=== PATIENT | female | born 1955 | race Caucasian/White ===

== ENCOUNTER → 2018-05-30 | Outpatient (CLI) | payer OTHER ==
[~2018-05-30] MED LIST: ALBU8HFA2 INH; ALBU90OI INH; AMOCLA875 PO; ARIP10 PO; BUPR150T2; CEPH500 PO; CLON.1 PO; CLON1; CYCL10; DESV50 PO; Diflucan200 MG PO; ESTR.05TPB; HYDACE5 PO; NYST100SU MT; PROACE100; PROG100; QUET100 PO; RANI150; ROSU10TA; SERT100; TIOT18 IH; VARE1 PO
[2018-05-30 20:01] LABS: BASOPHILS ABSOLUTE AUTO 0.02 K/mm3 (0.00-0.23); BASOPHILS PERCENT AUTO 0 % (0-2); EOSINOPHILS ABSOLUTE AUTO 0.07 K/mm3 (0.00-0.68); EOSINOPHILS PERCENT AUTO 1 % (0-6); Hematocrit 37.4 % (33.0-51.0); Hemoglobin 12.9 g/dL (11.5-16.0); IMMATURE GRAN ABSOLUTE AUTO 0.01 K/mm3 (0.00-0.10); IMMATURE GRAN PERCENT AUTO 0 % (0-1); LYMPHOCYTES ABSOLUTE AUTO 2.25 K/mm3 (0.84-5.20); LYMPHOCYTES PERCENT AUTO 27 % (21-46); MONOCYTES ABSOLUTE AUTO 0.66 K/mm3 (0.16-1.47); MONOCYTES PERCENT AUTO 8 % (4-13); Mean Corpuscular HGB 31.9 pg (26.0-34.0); Mean Corpuscular HGB Conc 34.5 g/dL (31.5-36.5); Mean Corpuscular Volume 93 fL (80-100); Mean Platelet Volume 9.9 fL (9.1-12.4); NEUTROPHILS ABSOLUTE AUTO 5.19 K/mm3 (1.96-9.15); NEUTROPHILS PERCENT AUTO 63 % (41-73); Platelet Count 348 K/mm3 (150-400); RDW Coefficient Variation 12.9 % (11.7-14.2); RDW Standard Deviation 43.9 fL (35.1-46.3); Red Blood Cell Count 4.04 M/mm3 (3.80-5.20)
[2018-05-30 20:11] LABS: Alanine Aminotransfer (ALT/SGP 45 U/L (12-78); Albumin, Blood 3.9 g/dL (3.4-5.0); Albumin/Globulin Ratio 1.1 (0.8-1.8); Alk Phos 94 U/L (50-136); Anion Gap 7 mmol/L (6-16); Aspartate Aminotrans (AST/SGOT 26 U/L (12-37); Bilirubin, Total 0.3 mg/dL (0.1-1.0); Blood Urea Nitrogen 11 mg/dL (8-24); Bun/Creatinine Ratio 18.5 (12.0-20.0); CO2, Blood 26 mmol/L (21-32); Calcium, Blood 9.2 mg/dL (8.5-10.1); Chloride, Blood 97 mmol/L (98-108); Globulin, Blood 3.5 g/dL (2.2-4.0); Glomerular Filtration Rate >60 (60-); Glucose, Blood 80 mg/dL (70-99); Potassium, Blood 4.1 mmol/L (3.5-5.5); Sodium, Blood 130 mmol/L (136-145); Total Protein, Blood 7.4 g/dL (6.4-8.2)
== END ==
LOC: LAB SHORT 19:19 → LAB 19:19
DX: R50.9 Fever, unspecified (principal)
CPT/HCPCS: 80053; 85025

== ENCOUNTER → 2019-01-15 | Outpatient (CLI) | payer OTHER ==
[~2019-01-15] MED LIST changes: +ABILIFY MYCITE20 MG PO; +ATOR10 PO; +Acetaminophen650 M1 PO; +Aspirin EC81 MG PO; +BUDE6HFA INH; +DICLO GEL1 EACH TOP; +Lisinopril2.5 MG PO; +Lyrica225 MG PO; +OXYB5 PO; +OXYGEN; +Pristiq100 MG PO; +TIOT18 INH; +Ventolin/Prove6.7 GM INH
== END | disposition home or self-care (01) ==
LOC: LAB SHORT 08:39 → PLD 08:39
DX: L57.0 Actinic keratosis (principal)
CPT/HCPCS: 88305

== ENCOUNTER 2019-02-05 06:41 | Day surgery (SDC) | payer OTHER ==
[~2019-02-05] VITALS: Ht 162.6 cm; Wt 44.5 kg
== END 2019-02-05 08:52 | disposition home or self-care (01) ==
LOC: ORSCSDS 06:41
PROVIDERS: Ophthalmology
PROC: 08RJ3JZ Replacement of Right Lens with Synthetic Substitute, Percutaneous Approach (ICD-10-PCS; principal; 2019-02-05 08:00)
DX: H25.11 Age-related nuclear cataract, right eye (principal); Z87.891 Personal history of nicotine dependence; K21.9 Gastro-esophageal reflux disease without esophagitis; F41.8 Other specified anxiety disorders; I10 Essential (primary) hypertension; J44.9 Chronic obstructive pulmonary disease, unspecified; Z79.899 Other long term (current) drug therapy
CPT/HCPCS: J2250; J3010; J7120; V2632

== ENCOUNTER → 2019-09-03 | Outpatient (CLI) | payer OTHER ==
[2019-09-03 15:50] LABS: BASOPHILS ABSOLUTE AUTO 0.03 K/mm3 (0.00-0.23); BASOPHILS PERCENT AUTO 0 % (0-2); EOSINOPHILS ABSOLUTE AUTO 0.13 K/mm3 (0.00-0.68); EOSINOPHILS PERCENT AUTO 2 % (0-6); Hematocrit 38.7 % (33.0-51.0); Hemoglobin 12.8 g/dL (11.5-16.0); IMMATURE GRAN ABSOLUTE AUTO 0.02 K/mm3 (0.00-0.10); IMMATURE GRAN PERCENT AUTO 0 % (0-1); LYMPHOCYTES ABSOLUTE AUTO 1.07 K/mm3 (0.84-5.20); LYMPHOCYTES PERCENT AUTO 12 % (21-46); MONOCYTES ABSOLUTE AUTO 0.46 K/mm3 (0.16-1.47); MONOCYTES PERCENT AUTO 5 % (4-13); Mean Corpuscular HGB 31.7 pg (26.0-34.0); Mean Corpuscular HGB Conc 33.1 g/dL (31.5-36.5); Mean Corpuscular Volume 96 fL (80-100); Mean Platelet Volume 10.1 fL (9.1-12.4); NEUTROPHILS ABSOLUTE AUTO 6.91 K/mm3 (1.96-9.15); NEUTROPHILS PERCENT AUTO 80 % (41-73); Platelet Count 432 K/mm3 (150-400); RDW Standard Deviation 42.7 fL (35.1-46.3); Red Blood Cell Count 4.04 M/mm3 (3.80-5.20); White Blood Cell Count 8.62 K/mm3 (4.00-11.30)
[2019-09-03 16:21] LABS: Alanine Aminotransfer (ALT/SGP 37 U/L (12-78); Albumin, Blood 4.1 g/dL (3.4-5.0); Alk Phos 269 U/L (50-136); Anion Gap 9 mmol/L (6-16); Aspartate Aminotrans (AST/SGOT 23 U/L (12-37); Bilirubin, Total 0.6 mg/dL (0.1-1.0); Blood Urea Nitrogen 12 mg/dL (8-24); Bun/Creatinine Ratio 19.9 (12.0-20.0); CHOL/HDL RATIO 1.9; CO2, Blood 24 mmol/L (21-32); Calcium, Blood 9.3 mg/dL (8.5-10.1); Chloride, Blood 98 mmol/L (98-108); Cholesterol 161 mg/dL (50-200); Globulin, Blood 4.1 g/dL (2.2-4.0); Glomerular Filtration Rate >60 (60-); Glucose, Blood 106 mg/dL (70-99); HDL Cholesterol 86 mg/dL (>39); LDL/HDL RATIO 0.7; Low Density Lipoprotein Chol 63 mg/dL (0-110); Potassium, Blood 4.2 mmol/L (3.5-5.5); Sodium, Blood 131 mmol/L (136-145); Thyroid Stimulating Hormone 0.668 uIU/mL (0.360-4.800); Total Protein, Blood 8.2 g/dL (6.4-8.2); Triglycerides 61 mg/dL (30-160); Very Low Density Lipoprot Chol 12 mg/dL (6-32)
[2019-09-04 08:08] LABS: HBSAG SCREEN Negative (Negative); HEP B CORE AB, TOT Negative (Negative); HEP C VIRUS AB <0.1 (0.0-0.9)
== END ==
PROVIDERS: Family Medicine
DX: Z11.59 Encounter for screening for other viral diseases (principal); I10 Essential (primary) hypertension; R73.01 Impaired fasting glucose

== ENCOUNTER → 2019-10-04 | Outpatient (CLI) | payer OTHER ==
[2019-10-04 21:16] LABS: Osmolality, Urine 234 mos/kg (15-1400)
[2019-10-04 21:30] LABS: Sodium, Urine, Random 20 mmol/L (20-110)
== END ==
LOC: LAB 19:41 → LAB SHORT 19:41
PROVIDERS: Family Medicine
DX: E87.1 Hypo-osmolality and hyponatremia (principal)
CPT/HCPCS: 83930; 83935; 84300

== ENCOUNTER → 2019-11-22 | Outpatient (CLI) | payer OTHER | LOC: LAB SHORT 19:42 → LAB 19:42 | DX: R53.83 Other fatigue (principal) | CPT/HCPCS: 82306 ==

== ENCOUNTER 2021-12-02 03:41 | Inpatient (IN) | payer OTHER ==
[~2021-12-02] VITALS: Ht 162.6 cm; Wt 45.4 kg
[2021-12-02 04:36] LABS: BASOPHILS ABSOLUTE AUTO 0.02 K/mm3 (0.00-0.23); BASOPHILS PERCENT AUTO 0 % (0-2); EOSINOPHILS ABSOLUTE AUTO 0.34 K/mm3 (0.00-0.68); EOSINOPHILS PERCENT AUTO 6 % (0-6); Hematocrit 33.3 % (33.0-51.0); Hemoglobin 11.2 g/dL (11.5-16.0); IMMATURE GRAN ABSOLUTE AUTO 0.03 K/mm3 (0.00-0.10); IMMATURE GRAN PERCENT AUTO 1 % (0-1); LYMPHOCYTES ABSOLUTE AUTO 1.86 K/mm3 (0.84-5.20); LYMPHOCYTES PERCENT AUTO 31 % (21-46); MONOCYTES ABSOLUTE AUTO 0.59 K/mm3 (0.16-1.47); MONOCYTES PERCENT AUTO 10 % (4-13); Mean Corpuscular HGB 31.5 pg (26.0-34.0); Mean Corpuscular HGB Conc 33.6 g/dL (31.5-36.5); Mean Corpuscular Volume 94 fL (80-100); Mean Platelet Volume 9.4 fL (9.1-12.4); NEUTROPHILS ABSOLUTE AUTO 3.08 K/mm3 (1.96-9.15); NEUTROPHILS PERCENT AUTO 52 % (41-73); Platelet Count 288 K/mm3 (150-400); RDW Coefficient Variation 12.5 % (11.7-14.2); RDW Standard Deviation 43.6 fL (35.1-46.3); Red Blood Cell Count 3.55 M/mm3 (3.80-5.20); White Blood Cell Count 5.92 K/mm3 (4.00-11.30)
[2021-12-02 04:50] LABS: Bun/Creatinine Ratio 20.3 (12.0-20.0); Calcium, Blood 8.7 mg/dL (8.5-10.1); Creatinine, Blood 0.64 mg/dL (0.40-1.00); Potassium, Blood 4.1 mmol/L (3.5-5.5)
[2021-12-02 05:48] LABS: Source, Urine Foley catheter
[2021-12-02 06:07] LABS: Bilirubin, Urine Neg (Neg); Blood, Urine Neg (Neg); Glucose Qualitative, Urine Neg (Neg); Ketones, Urine Neg (Neg); Leukocyte Esterase, Urine Neg (Neg); Nitrite, Urine Neg (Neg); Protein, Urine Neg (Neg); Urobilinogen, Urine NORM (Normal)
[2021-12-02 06:13] LABS: Appearance, Urine Clear (Clear); Color, Urine Yellow (P-Yellow)
[2021-12-02 06:29] LABS: Influenza A, PCR NEGATIVE (NEGATIVE); Influenza B, PCR NEGATIVE (NEGATIVE); Resp Syncytial Virus, PCR NEGATIVE (NEGATIVE); SARS-Cov-2 (COVID-19) PCR, MMC NEGATIVE (NEGATIVE)
[2021-12-02 12:30] LABS: Source, Urine Clean Catch
[2021-12-02 12:35] LABS: Appearance, Urine Hazy (Clear); Bilirubin, Urine Neg (Neg); Blood, Urine 1+ (Neg); Color, Urine Yellow (P-Yellow); Glucose Qualitative, Urine Neg (Neg); Ketones, Urine Neg (Neg); Leukocyte Esterase, Urine Neg (Neg); Nitrite, Urine Neg (Neg); Protein, Urine Neg (Neg); Urobilinogen, Urine NORM (Normal)
[2021-12-02 12:47] LABS: White Blood Cells, Urine 0-2 /hpf (0-5)
[2021-12-02 12:48] LABS: Bacteria Few /hpf; Squamous Epithelial Cells Rare /hpf (Few)
[2021-12-02 12:49] LABS: Amorphous Mod (0-Heavy)
--- NOTE | 2021-12-02 15:15 | NUR ---
PT HERE FROM SURGICAL FLOOR. PT WITH INCREASING LABORED BREATHING WHICH PT STATES IS R/T INCREASED ANXIETY. PT ASKING FOR UPDRAFT. LUNGS CTA BUT PT DOES HAVE PRODUCTIVE COUGH. PT STATES SHE'S BEEN ON ABX FOR PNEUMONIA X 1 WEEK, PT STATES CONCERNED SHE WILL NOT BREATH DEEP ENOUGH UNDER ANESTHESIA. REASSURANCE GIVEN THAT DR. PIMENTEL WILL BE HELPING HER TO BREATH ADEQUATELY AND MONITORING HER VERY CLOSELY. PT IS IN ATTENDS AND STATES THAT HER DIMAS IS LEAKING. IV IN RAC UNABLE TO BE USED D/T POSITIONING IN OR. NEW IV PLACED IN LAC. PT UNABLE TO TOLERATE CHLORAHEXADINE WIPES OR PUTTING MICHA HOSE OR PAS ON.
--- NOTE | 2021-12-03 04:45 | NUR ---
SUMMARY NO NEW ISSUES NOTED. PT PAIN MANAGED WELL. PT REMAINS COMFORTABLE. PT DIMAS DRAINING TO GRAVITY. PT DENIES N/V. PT CALL LIGHT IN REACH.
--- NOTE | 2021-12-03 11:01 | NUR ---
SPOKE WITH DR VALENCIA REGARDING HR SUSTAINED 120-130, WILL CONTINUE O MONITOR
--- NOTE | 2021-12-03 17:43 | NUR ---
PT REPORTS PAIN IS ADEQUATELY CONTROLLED WITH PO MEDS, VOIDING POST DIMAS REMOVAL. ONE PERSON ASSIST OOB. HR ST 100-130 WITH SHORT PERIODS P TO 150 WHEN GETTING OOB. PT STATES HER BREATHING IS AT HER BASELINE. PT HOPEFUL TO BE ABLE TO DISCHARGE TO HOME IN AM
--- NOTE | 2021-12-04 05:02 | NUR ---
ASSUMED CARE OF PT AT 1900 HRS. NO ACUTE CHANGES THIS SHIFT. PT IS A&OX4, SBA TO BR W/ FWW, AND IS ABLE TO MAKE NEEDS KNOWN. POST OP DAY 2 FOR HIP FRACTURE REPAIR, CSM IS INTACT, DRESSINGS CDI. PAIN CONTROLLED WITH NORCO 5MG 1 TAB. REMAINS ON TELE, TACHACARDIC 100-130 CAN REACH 140s AFTER AMBULATION. PT ABLE TO SLEEP 6+ HOURS THIS NIGHT. WILL CONTINUE TO MONITOR AND GIVE HANDOFF REPORT TO ONCOMING RN.
[2021-12-04 11:45] LABS: SARS-Cov-2 (COVID-19) PCR, MMC NEGATIVE (NEGATIVE)
--- NOTE | 2021-12-04 13:13 | NUR ---
DISCHARGE SUMMARY PT A&OX4, VSS/3LNC BASELINE, ZULLY PO, VOIDING WELL/BM TODAY, AMB SBA FWW, UP TO CHAIR/BRP T/O SHIFT, IV DC'D. DRESSINGS CHANGED, LENORE DRY/INTACT. PACKET GIVEN TO TRANSPORT WITH FACE SHEET. [facility]
--- NOTE | 2021-12-06 09:31 | NUR ---
12/06/21 0931 Ainsley Smith VERIFICATIONS: EDIT CHART.
== END 2021-12-04 13:10 | DRG 480 ==
LOC: ER 03:41 → SURS 04:36 → MEDS 04:36 → SURS 06:33
PROVIDERS: Family Medicine; Internal Medicine; Orthopaedic Surgery; Student in an Organized Health Care Education/Training Program; ADMIT Internal Medicine
PROC: 0QS636Z Reposition Right Upper Femur with Intramedullary Internal Fixation Device, Percutaneous Approach (ICD-10-PCS; principal; 2021-12-02 15:00)
DX: S72.141A Displaced intertrochanteric fracture of right femur, initial encounter for closed fracture (principal); E43 Unspecified severe protein-calorie malnutrition; E87.1 Hypo-osmolality and hyponatremia; F03.91 Unspecified dementia, unspecified severity, with behavioral disturbance; Z68.1 Body mass index [BMI] 19.9 or less, adult; W18.31XA Fall on same level due to stepping on an object, initial encounter; Y92.009 Unspecified place in unspecified non-institutional (private) residence as the place of occurrence of the external cause; K21.9 Gastro-esophageal reflux disease without esophagitis; E78.5 Hyperlipidemia, unspecified; I10 Essential (primary) hypertension; M19.90 Unspecified osteoarthritis, unspecified site; Z99.81 Dependence on supplemental oxygen; F43.10 Post-traumatic stress disorder, unspecified; M79.7 Fibromyalgia; J43.9 Emphysema, unspecified; Z98.890 Other specified postprocedural states; Z87.891 Personal history of nicotine dependence; Z88.2 Allergy status to sulfonamides; Z88.8 Allergy status to other drugs, medicaments and biological substances; Z79.899 Other long term (current) drug therapy; Z79.82 Long term (current) use of aspirin
CPT/HCPCS: 0241U; 73502; 80048; 81001; 81003; 85025; 93005; 93010; 94640; 94760; 96374; 96375; 97110; 97116; 97162; 97165; 97530; 97535; 99285-25; A9270; J0690; J1100; J1885; J2250; J2405; J2704; J3010; J7030; J7120; U0004

== ENCOUNTER → 2023-03-06 | Outpatient (CLI) | payer MEDICARE, OTHER | LOC: LAB SHORT 14:39 → LAB 14:39 | DX: D23.61 Other benign neoplasm of skin of right upper limb, including shoulder (principal) | CPT/HCPCS: 88305 ==

== ENCOUNTER → 2023-06-06 | Outpatient (CLI) | payer MEDICARE, OTHER ==
[2023-06-06 19:36] LABS: BASOPHILS ABSOLUTE AUTO 0.03 K/mm3 (0.00-0.23); BASOPHILS PERCENT AUTO 1 % (0-2); EOSINOPHILS ABSOLUTE AUTO 0.13 K/mm3 (0.00-0.68); EOSINOPHILS PERCENT AUTO 2 % (0-6); Hematocrit 37.3 % (33.0-51.0); Hemoglobin 12.8 g/dL (11.5-16.0); IMMATURE GRAN ABSOLUTE AUTO 0.01 K/mm3 (0.00-0.10); IMMATURE GRAN PERCENT AUTO 0 % (0-1); LYMPHOCYTES ABSOLUTE AUTO 1.52 K/mm3 (0.84-5.20); LYMPHOCYTES PERCENT AUTO 23 % (21-46); MONOCYTES ABSOLUTE AUTO 0.51 K/mm3 (0.16-1.47); MONOCYTES PERCENT AUTO 8 % (4-13); Mean Corpuscular HGB 31.2 pg (26.0-34.0); Mean Corpuscular HGB Conc 34.3 g/dL (31.5-36.5); Mean Corpuscular Volume 91 fL (80-100); Mean Platelet Volume 11.1 fL (9.1-12.4); NEUTROPHILS ABSOLUTE AUTO 4.39 K/mm3 (1.96-9.15); NEUTROPHILS PERCENT AUTO 67 % (41-73); Platelet Count 241 K/mm3 (150-400); RDW Coefficient Variation 12.7 % (11.7-14.2); RDW Standard Deviation 41.8 fL (35.1-46.3); White Blood Cell Count 6.59 K/mm3 (4.00-11.30)
[2023-06-06 20:57] LABS: Alanine Aminotransfer (ALT/SGP 36 U/L (12-78); Albumin, Blood 4.5 g/dL (3.4-5.0); Albumin/Globulin Ratio 1.3 (0.8-1.8); Alk Phos 76 U/L (50-136); Anion Gap 3 mmol/L (6-16); Aspartate Aminotrans (AST/SGOT 27 U/L (12-37); Bilirubin, Total 0.4 mg/dL (0.1-1.0); Blood Urea Nitrogen 13 mg/dL (8-24); Bun/Creatinine Ratio 25.1 (12.0-20.0); CHOL/HDL RATIO 1.5; CO2, Blood 29 mmol/L (21-32); Calcium, Blood 9.5 mg/dL (8.5-10.1); Chloride, Blood 104 mmol/L (98-108); Cholesterol 198 mg/dL (50-200); Creatinine, Blood 0.52 mg/dL (0.40-1.00); Globulin, Blood 3.4 g/dL (2.2-4.0); Glomerular Filtration Rate 102 (60-); Glucose, Blood 103 mg/dL (70-99); HDL Cholesterol 129 mg/dL (>39); LDL/HDL RATIO 0.4; Low Density Lipoprotein Chol 58 mg/dL (0-110); Potassium, Blood 4.1 mmol/L (3.5-5.5); Sodium, Blood 136 mmol/L (136-145); Total Protein, Blood 7.9 g/dL (6.4-8.2); Triglycerides 55 mg/dL (30-160); Very Low Density Lipoprot Chol 11 mg/dL (6-32)
== END ==
LOC: LAB 19:19 → LAB SHORT 19:19
PROVIDERS: Family Medicine
DX: E78.5 Hyperlipidemia, unspecified (principal); Z79.899 Other long term (current) drug therapy
CPT/HCPCS: 80053; 80061; 85025

== ENCOUNTER → 2023-10-03 | Outpatient (CLI) | payer MEDICARE, OTHER ==
[2023-10-03 19:42] LABS: BASOPHILS ABSOLUTE AUTO 0.03 K/mm3 (0.00-0.23); BASOPHILS PERCENT AUTO 1 % (0-2); EOSINOPHILS ABSOLUTE AUTO 0.08 K/mm3 (0.00-0.68); EOSINOPHILS PERCENT AUTO 1 % (0-6); Hematocrit 38.4 % (33.0-51.0); Hemoglobin 12.9 g/dL (11.5-16.0); IMMATURE GRAN ABSOLUTE AUTO 0.01 K/mm3 (0.00-0.10); IMMATURE GRAN PERCENT AUTO 0 % (0-1); LYMPHOCYTES ABSOLUTE AUTO 1.52 K/mm3 (0.84-5.20); LYMPHOCYTES PERCENT AUTO 26 % (21-46); MONOCYTES ABSOLUTE AUTO 0.56 K/mm3 (0.16-1.47); MONOCYTES PERCENT AUTO 9 % (4-13); Mean Corpuscular HGB 31.7 pg (26.0-34.0); Mean Corpuscular HGB Conc 33.6 g/dL (31.5-36.5); Mean Corpuscular Volume 94 fL (80-100); Mean Platelet Volume 10.6 fL (9.1-12.4); NEUTROPHILS ABSOLUTE AUTO 3.77 K/mm3 (1.96-9.15); NEUTROPHILS PERCENT AUTO 63 % (41-73); Platelet Count 281 K/mm3 (150-400); RDW Coefficient Variation 12.9 % (11.7-14.2); RDW Standard Deviation 44.4 fL (35.1-46.3); Red Blood Cell Count 4.07 M/mm3 (3.80-5.20); White Blood Cell Count 5.97 K/mm3 (4.00-11.30)
[2023-10-03 20:09] LABS: Albumin, Blood 4.4 g/dL (3.4-5.0); Albumin/Globulin Ratio 1.4 (0.8-1.8); Bilirubin, Total 0.5 mg/dL (0.1-1.0); Bun/Creatinine Ratio 21.6 (12.0-20.0); Calcium, Blood 9.7 mg/dL (8.5-10.1); Creatinine, Blood 0.51 mg/dL (0.40-1.00); Globulin, Blood 3.2 g/dL (2.2-4.0); Potassium, Blood 4.1 mmol/L (3.5-5.5); Total Protein, Blood 7.6 g/dL (6.4-8.2)
== END ==
LOC: LAB 18:52 → LAB SHORT 18:52
PROVIDERS: Nurse Practitioner Family
DX: R10.9 Unspecified abdominal pain (principal)
CPT/HCPCS: 80053; 85025

== ENCOUNTER → 2024-06-02 | Outpatient (CLI) | payer MEDICARE, OTHER ==
[2024-06-02 11:08] LABS: BASOPHILS ABSOLUTE AUTO 0.02 K/mm3 (0.00-0.23); BASOPHILS PERCENT AUTO 0 % (0-2); EOSINOPHILS ABSOLUTE AUTO 0.06 K/mm3 (0.00-0.68); EOSINOPHILS PERCENT AUTO 1 % (0-6); Hematocrit 34.1 % (33.0-51.0); Hemoglobin 11.3 g/dL (11.5-16.0); IMMATURE GRAN ABSOLUTE AUTO 0.04 K/mm3 (0.00-0.10); IMMATURE GRAN PERCENT AUTO 0 % (0-1); LYMPHOCYTES ABSOLUTE AUTO 0.64 K/mm3 (0.84-5.20); LYMPHOCYTES PERCENT AUTO 7 % (21-46); MONOCYTES ABSOLUTE AUTO 0.42 K/mm3 (0.16-1.47); MONOCYTES PERCENT AUTO 5 % (4-13); Mean Corpuscular HGB 31.2 pg (26.0-34.0); Mean Corpuscular HGB Conc 33.1 g/dL (31.5-36.5); Mean Corpuscular Volume 94 fL (80-100); Mean Platelet Volume 9.4 fL (9.1-12.4); NEUTROPHILS ABSOLUTE AUTO 7.94 K/mm3 (1.96-9.15); NEUTROPHILS PERCENT AUTO 87 % (41-73); Platelet Count 274 K/mm3 (150-400); RDW Coefficient Variation 13.2 % (11.7-14.2); RDW Standard Deviation 45.7 fL (35.1-46.3); Red Blood Cell Count 3.62 M/mm3 (3.80-5.20); White Blood Cell Count 9.12 K/mm3 (4.00-11.30)
[2024-06-02 11:21] LABS: Albumin, Blood 4.1 g/dL (3.4-5.0); Albumin/Globulin Ratio 1.4 (0.8-1.8); Bilirubin, Total 0.5 mg/dL (0.1-1.0); Calcium, Blood 9.1 mg/dL (8.5-10.1); Creatinine, Blood 0.5 mg/dL (0.40-1.00); Globulin, Blood 2.9 g/dL (2.2-4.0); Potassium, Blood 4.5 mmol/L (3.5-5.5)
== END ==
LOC: LAB SHORT 11:04
PROVIDERS: Physician Assistant
DX: Z86.79 Personal history of other diseases of the circulatory system (principal)
CPT/HCPCS: 80053; 83880; 84484; 85025

== ENCOUNTER 2024-06-20 02:09 | Inpatient (IN) | payer MEDICARE, OTHER ==
[~2024-06-20] VITALS: Ht 154.9 cm; Wt 44.6 kg
[2024-06-20] MEDS ORDERED: COMBIVENT RESPIM4 G1 INH (02:31)
[2024-06-20] MEDS ORDERED: LEVOFLOXACIN50011 PO (02:31)
[2024-06-20] MEDS ORDERED: DILTIAZEM 24HR120 M2 PO (02:31)
[2024-06-20] MEDS ORDERED: KLOR-CON 1010 ME9 PO (02:32)
[2024-06-20] MEDS ORDERED: Dilaudid 2 mg Ta2 MG PO (02:32)
[2024-06-20] MEDS ORDERED: TRELEGY ELLIPT1 EACH IH (02:33)
[2024-06-20] MEDS ORDERED: PANTOPRAZOLE SO40 M2 PO (02:33)
[2024-06-20] MEDS ORDERED: MORP10S PR (02:33)
[2024-06-20] MEDS ORDERED: PROLIA60 MG/1 ML SQ (02:34)
[2024-06-20] MEDS ORDERED: LORAZEPAM0.5 MG PO (02:34)
[2024-06-20] MEDS ORDERED: CYMBALTA30 M2 PO (02:34)
[2024-06-20] MEDS ORDERED: ASPIRIN REGIMEN81 MG PO (02:34)
[2024-06-20] MEDS ORDERED: HYDROmorphone HCl/Pf 1MG SYR IV ONE (02:55)
[2024-06-20 04:56] LABS: BASOPHILS ABSOLUTE AUTO 0.02 K/mm3 (0.00-0.23); BASOPHILS PERCENT AUTO 0 % (0-2); EOSINOPHILS ABSOLUTE AUTO 0.28 K/mm3 (0.00-0.68); EOSINOPHILS PERCENT AUTO 3 % (0-6); Hematocrit 32.9 % (33.0-51.0); Hemoglobin 11.3 g/dL (11.5-16.0); IMMATURE GRAN ABSOLUTE AUTO 0.02 K/mm3 (0.00-0.10); IMMATURE GRAN PERCENT AUTO 0 % (0-1); LYMPHOCYTES ABSOLUTE AUTO 1.56 K/mm3 (0.84-5.20); LYMPHOCYTES PERCENT AUTO 19 % (21-46); MONOCYTES ABSOLUTE AUTO 0.82 K/mm3 (0.16-1.47); MONOCYTES PERCENT AUTO 10 % (4-13); Mean Corpuscular HGB 31.9 pg (26.0-34.0); Mean Corpuscular HGB Conc 34.3 g/dL (31.5-36.5); Mean Corpuscular Volume 93 fL (80-100); Mean Platelet Volume 9.2 fL (9.1-12.4); NEUTROPHILS PERCENT AUTO 68 % (41-73); Platelet Count 310 K/mm3 (150-400); RDW Coefficient Variation 12.5 % (11.7-14.2); RDW Standard Deviation 42.9 fL (35.1-46.3); Red Blood Cell Count 3.54 M/mm3 (3.80-5.20)
[2024-06-20 05:15] LABS: Albumin, Blood 3.6 g/dL (3.4-5.0); Albumin/Globulin Ratio 1.2 (0.8-1.8); Bilirubin, Total 0.6 mg/dL (0.1-1.0); Bun/Creatinine Ratio 20.3 (12.0-20.0); Calcium, Blood 8.7 mg/dL (8.5-10.1); Creatinine, Blood 0.59 mg/dL (0.40-1.00); Potassium, Blood 4.3 mmol/L (3.5-5.5); Total Protein, Blood 6.6 g/dL (6.4-8.2)
[2024-06-20] MEDS ORDERED: Ketorolac Tromethamine 30mg Vial IV PRN (05:15)
[2024-06-20] MEDS ORDERED: Ondansetron HCl 2 MG / ML 2ML Vial IV PRN (05:15)
[2024-06-20] MEDS ORDERED: FLU VACC TS2024-25(6MOS UP)/PF 45 MCG/0.5 ML SYRINGE IM ONE (05:15)
[2024-06-20] MEDS ORDERED: NS 1,000 ML IV ONE ×2 (05:15→06:35)
[2024-06-20] MEDS ORDERED: FentaNYL Citrate 50 MCG/ML 2 ML Injection IV PRN ×2 (05:15→08:20)
[2024-06-20] MEDS ORDERED: Ipratropium/Albuterol SulF 2.5-0.5MG/3 ML Amp INH PRN (06:00)
[2024-06-20] MEDS ORDERED: MethylPREDNISolone Sod Succ 125 MG Vial IV SCH (06:00)
[2024-06-20] MEDS ORDERED: Albuterol 2.5 MG/3 ML VIAL INH PRN (06:10)
[2024-06-20] MEDS ORDERED: Acetaminophen 325 MG TABLET PO PRN (06:15)
[2024-06-20 06:29] VITALS: BP 111/80
[2024-06-20] MEDS ORDERED: LevoFLOXacin 750 MG/D5W 150ML 150 ML IV SCH (06:36)
[2024-06-20 07:02] LABS: Influenza A, PCR NEGATIVE (NEGATIVE); Influenza B, PCR NEGATIVE (NEGATIVE); Resp Syncytial Virus, PCR NEGATIVE (NEGATIVE); SARS-Cov-2 (COVID-19) PCR, MMC NEGATIVE (NEGATIVE)
--- NOTE | 2024-06-20 07:23 | NUR ---
SHIFT SUMMARY PT ARRIVED 06. SHE IS HERE BEING TREATED FOR PAIN MANAGEMENT D/T A LUMBAR COMPRESSION FX. WILL RELAY TO DAY SHIFT.
[2024-06-20] MEDS ORDERED: HYDROmorphone HCl 2 MG Tab PO ONE (08:00)
[2024-06-20] MEDS ORDERED: LORazepam 0.5 MG Tab PO ONE (08:00)
[2024-06-20 08:56] LABS: Appearance, Urine Clear (Clear); Bilirubin, Urine Neg (Neg); Blood, Urine Neg (Neg); Color, Urine Yellow (P-Yellow); Glucose Qualitative, Urine Neg (Neg); Ketones, Urine Neg (Neg); Leukocyte Esterase, Urine Neg (Neg); Nitrite, Urine Neg (Neg); Protein, Urine Neg (Neg); Specific Gravity, Urine 1.015 (1.003-1.022); Urobilinogen, Urine NORM (Normal)
[2024-06-20] MEDS ORDERED: dilTIAZem HCL 120 MG CAP.CD PO SCH (09:00)
[2024-06-20] MEDS ORDERED: Enoxaparin 40 MG/0.4 ML SYR SC SCH (09:00)
[2024-06-20] MEDS ORDERED: Pantoprazole Sodium 40 MG Tab PO SCH (09:00)
[2024-06-20] MEDS ORDERED: DULoxetine HCL 30 MG Cap DR PO SCH (09:00)
[2024-06-20] MEDS ORDERED: Aspirin 81 MG TabEC PO SCH (09:00)
[2024-06-20] MEDS ORDERED: ARIPiprazole 10 MG Tab PO SCH (09:00)
[2024-06-20] MEDS ORDERED: FERSU300 PO (09:57)
[2024-06-20] MEDS ORDERED: PANT40 PO (09:58)
[2024-06-20] MEDS ORDERED: SERT25 PO (09:58)
[2024-06-20] MEDS ORDERED: Prinivil10 MG PO (10:00)
[2024-06-20] MEDS ORDERED: GEMTESA75 MG PO (10:02)
[2024-06-20] MEDS ORDERED: Cyclobenzaprine5 MG PO (10:05)
[2024-06-20] MEDS ORDERED: MORP20L PO (10:08)
[2024-06-20] MEDS ORDERED: TRELEGY ELLIPTA INH SCH (10:15)
[2024-06-20] MEDS ORDERED: Ipratropium/Albuterol SulF 2.5-0.5MG/3 ML Amp INH SCH (10:15)
[2024-06-20] MEDS ORDERED: Cyclobenzaprine HCl 10 MG Tab PO PRN (10:30)
[2024-06-20] MEDS ORDERED: Morphine Sulfate 20 MG/1ML 1 ML Oral Syringe PO PRN (10:30)
[2024-06-20 11:28] VITALS: BP 109/65
[2024-06-20] MEDS ORDERED: LORazepam 0.5 MG Tab PO PRN (14:00)
[2024-06-20] MEDS ORDERED: HYDROmorphone HCl 2 MG Tab PO PRN (14:00)
[2024-06-20] MEDS ORDERED: Lidocaine 4% 1 Patch TOP SCH (15:00)
[2024-06-20 15:26] VITALS: BP 103/72
[2024-06-20] MEDS ORDERED: Nicotine 7 MG PATCH TOP ONE (16:55)
--- NOTE | 2024-06-20 17:33 | NUR ---
PC NOTE: MET WITH PATIENT TO DISCUSS PAIN MANAGEMENT. ON ARRIVAL PT IS STANDING UP WITH PHYSICAL THERAPIST WORKING WITH HER. SHE IS ABLE TO SELF TX TO HER CHAIR AT BEDSIDE. SHE IS ABLE TO SIT IN CHAIR WITHOUT SUPPORTS. DECLINES A PILLOW. SHE REPORTS PAIN IS 9/10. HOWEVER SHE HAS NO FROWN, SHE IS ABLE TO TALK EASILY AND IS NOT SHOWING ANY SIGNS OF DISCOMFORT OTHER THAN BEING GUARDED IN HER MOVEMENTS. SHE IS EATING STRING CHEESE WE DISCUSS HER PAIN MANAGEMENT. PT REPORTS SHE HAS BEEN TAKING ROXANOL 10 MG EVERY 6 HOURS AT HOME TO TREAT HER DYSPNEA AND PAIN. SHE WAS TAKING TRAMADOL BUT IT DID NOT HELP SO SHE RECENTLY STARTED TAKING DILAUDID 2 MG EVERY 8 HOURS BUT IT WAS NOT ENOUGH AND WAS ACTUALLY TAKING EVERY 6 HOURS BUT SHE WAS SCARED TO TAKE ANYMORE. SHE STATED IT WAS NOT ENOUGH TO TREAT HER PAIN. I ASKED HOW HER PAIN HAS BEEN MANAGED TODAY WITH GETTING IV FENTANYL AND ROXANOL. SHE STATED IT IS THE BEST HER OAIN HAS BEEN MANAGED. SHE APPEARS TO BE TOLERATING FENTANYL WELL WITH NO ADVERSE REACTIONS AT THIS TIME. SHE STATED TRIGGERS OF EXCRUTIATING PAIN ARE COUGHING FITS. SHE DOES HAVE CHRONIC EMPHYSEMA AND IS ON 4 LPM O2. PT STATES SHE SLEEPS ON A COUCH. OFFERED TO SEE IF SHE WOULD QUALIFY FOR A HOSPITAL BED AND DISCUSSED BENEFITS A HOSPITAL BED WOULD HAVE FOR HER CONDITIONS. SHE STATES SHE WILL STICK WITH THE COUCH FOR NOW BUT WILL DISCUSS THAT OPTION WITH THE FAMILY. DISCUSSED WITH PHARMACY PT CURRENT PAIN MED REGIMEN AT HOME AND EFFECTIVENESS OF FENTANYL VIA IV OF 50 MCG. SHE STATED SHE WOULD CALCULATE APPROPRIATE FENTANYL PATCH DOSE. AND GET BACK TO ME. SHE DID REPORT 25 MCG FENTANYL PATCH SHOULD BE SAFE DOSE. UPDATED DR. LIM WITH RECOMMENDATIONS.
--- NOTE | 2024-06-20 18:36 | NUR ---
assumed care of pt. pt is a/o vss very pleasent and cooperative with care. admission data base done meds entered and revised by dr mejias. pt day consisted of trying to gain control of pain. pt has chronic pain managemnet and has many prescriptions, pt has been watched for heavey sedation but has olga lidia the medicationswell. pt can make needs known and has call light at her side. possible back procedure after this weekend.
[2024-06-20] MEDS ORDERED: Lactobacil 2-S.Thermo-Bifido 1 1 Cap PO SCH (21:00)
[2024-06-20] MEDS ORDERED: oxyBUTYnin chloride 5 MG TAB PO SCH (21:00)
[2024-06-20 21:22] VITALS: BP 114/65
[2024-06-21] VITALS (8 sets, daily range): BP systolic 102–153; BP diastolic 56–97
[2024-06-21 06:22] LABS: BASOPHILS PERCENT AUTO 0 % (0-2); EOSINOPHILS PERCENT AUTO 0 % (0-6); Hematocrit 27.6 % (33.0-51.0); Hemoglobin 9.5 g/dL (11.5-16.0); IMMATURE GRAN ABSOLUTE AUTO 0.02 K/mm3 (0.00-0.10); IMMATURE GRAN PERCENT AUTO 0 % (0-1); LYMPHOCYTES ABSOLUTE AUTO 0.44 K/mm3 (0.84-5.20); LYMPHOCYTES PERCENT AUTO 8 % (21-46); MONOCYTES ABSOLUTE AUTO 0.08 K/mm3 (0.16-1.47); MONOCYTES PERCENT AUTO 2 % (4-13); Mean Corpuscular HGB 31.7 pg (26.0-34.0); Mean Corpuscular HGB Conc 34.4 g/dL (31.5-36.5); Mean Corpuscular Volume 92 fL (80-100); Mean Platelet Volume 9.7 fL (9.1-12.4); NEUTROPHILS ABSOLUTE AUTO 4.95 K/mm3 (1.96-9.15); NEUTROPHILS PERCENT AUTO 90 % (41-73); Platelet Count 306 K/mm3 (150-400); RDW Coefficient Variation 12.4 % (11.7-14.2); RDW Standard Deviation 41.6 fL (35.1-46.3); White Blood Cell Count 5.49 K/mm3 (4.00-11.30)
[2024-06-21 06:41] LABS: Albumin, Blood 3.2 g/dL (3.4-5.0); Albumin/Globulin Ratio 1.2 (0.8-1.8); Bilirubin, Total 0.5 mg/dL (0.1-1.0); Bun/Creatinine Ratio 30.2 (12.0-20.0); Calcium, Blood 8.4 mg/dL (8.5-10.1); Creatinine, Blood 0.56 mg/dL (0.40-1.00); Globulin, Blood 2.6 g/dL (2.2-4.0); Phosphorus, Blood 3.3 mg/dL (2.5-4.9); Potassium, Blood 4.8 mmol/L (3.5-5.5); Total Protein, Blood 5.8 g/dL (6.4-8.2)
--- NOTE | 2024-06-21 08:13 | NUR ---
SHIFT SUMMARY PT CONTINUES TO BE TREATED FOR LUMBAR PAIN AND DYSPNEA. SHE HAS A KYPHOPLASTY ARRANGED FOR MONDAY MORNING. PT VOICED CONCERNS THAT HER PROVIDER WOULD NOT KNOW SHE IS HERE IN ORDER TO SIGN CONSENT FORMS. SUGGESTED PT CONTACT HER PROVIDER TO ENSURE THEY ARE AWARE OF HER ADMITTANCE INTO THE HOSPITAL. PT HAS BEEN PLEASANT AND COOPERATIVE WITH HER CARE. WILL RELAY TO DAY SHIFT.
[2024-06-21] MEDS ORDERED: Ferrous Sulfate 325 MG Tab PO SCH (09:00)
[2024-06-21] MEDS ORDERED: Lisinopril 10 MG Tab PO SCH (09:00)
[2024-06-21] MEDS ORDERED: Sertraline HCl 50 MG Tab PO SCH (09:00)
[2024-06-21] MEDS ORDERED: FentaNYL 25 MCG Patch TOP SCH (10:45)
[2024-06-21] MEDS ORDERED: Sodium Chloride 1 GM TAB PO SCH (12:30)
--- NOTE | 2024-06-21 17:50 | NUR ---
PT CONT LEVEL OF CARE. PT NOTED TO BE A&O X3 WITH CONFUSION NOTED AND ASSIST X1 WITH AMBULATION. PURWICK DC THIS SHIFT PT IS ABLE TO COMMUNICATED NEEDS. PT PROVIDES HX ON PT. PT NOTED TO REFUSE LACTULOSE THIS MORNING BUT NOTED TO TAKE 1/2 OF THE ORDER DOSE AT 1300. AND THEN NOTED TO REFUSE THE OTHER DOSE. PT NOTED TO HAVE 3 BOWEL MOVEMENTS THIS SHIFT AND PHYSICIAN STATED HE WANTED PT TO HAVE 3-4 PER DAY DT PT CIRROSIS. PT CONT ABT FOR UTI WITH NO DC PLAN AT THIS TIME.
--- NOTE | 2024-06-21 17:51 | NUR ---
SHIFT SUMMARY PT CONT LEVEL OF CARE. PT NOTED TO BE A&OX4 AND IND IN ROOM. PT PAIN TO CONT TO REMAIN UNCONTROLLED. PT STARTED ON FENTYNAL PATCH WHICH WAS APPLIED TO BACK OF R SHOULDER. PT CONT TO UTILIZE PRN DILAUDID, ROXANOL, TORADOL SEE MAR FOR DETAILS. PT CONT TO BE TREATED FOR COPD EXACERBATION. PLAN IS FOR A KYPHOPLASTY ONCE MEDICALLY STABLE.
[2024-06-21] MEDS ORDERED: Nicotine 7 MG PATCH TOP SCH (18:00)
--- NOTE | 2024-06-21 21:50 | NUR ---
NURSE NOTE AIRCRAFT LIFE SUPPORT FITTER CALLED TO SAY THAT PATIENT HAD ST ELEVATION IN LEAD II. PATIENT DID NOT HAVE ANY SYMPTOMS. VITAL SIGNS STABLE EXCEPT FOR HEART RATE AT 111 BPM. SHE HAS BEEN TACHY DURING THIS ADMISSION. NO NEW ORDERS AT THIS TIME. TELE WILL REMAIN IN PLACE.
[2024-06-22] VITALS (8 sets, daily range): BP systolic 98–175; BP diastolic 66–109
--- NOTE | 2024-06-22 04:12 | NUR ---
SHIFT SUMMARY PATIENT HAS BEEN SLEEPING INTERMITTANTLY DURING THE NIGHT. SHE HAS BEEN MEDICATED FOR BACK PAIN X3 ON THIS SHIFT. PATIENT IS VERY SOB WITH MINIMAL EXERTION AND 02 MUST BE TITRATED UP WITH ANY ACTIVITY AT ALL. PATIENT IS ORIENTED X4. SHE HAS HER CALL LIGHT WITHIN REACH. SAFETY PRECAUTIONS ARE BEING MAINTAINED.
[2024-06-22 07:10] LABS: BASOPHILS ABSOLUTE AUTO 0.02 K/mm3 (0.00-0.23); BASOPHILS PERCENT AUTO 0 % (0-2); EOSINOPHILS ABSOLUTE AUTO 0.02 K/mm3 (0.00-0.68); EOSINOPHILS PERCENT AUTO 0 % (0-6); Hematocrit 33.4 % (33.0-51.0); Hemoglobin 11.5 g/dL (11.5-16.0); IMMATURE GRAN ABSOLUTE AUTO 0.08 K/mm3 (0.00-0.10); IMMATURE GRAN PERCENT AUTO 1 % (0-1); LYMPHOCYTES ABSOLUTE AUTO 0.43 K/mm3 (0.84-5.20); LYMPHOCYTES PERCENT AUTO 3 % (21-46); MONOCYTES ABSOLUTE AUTO 0.36 K/mm3 (0.16-1.47); MONOCYTES PERCENT AUTO 2 % (4-13); Mean Corpuscular HGB 31.7 pg (26.0-34.0); Mean Corpuscular HGB Conc 34.4 g/dL (31.5-36.5); Mean Corpuscular Volume 92 fL (80-100); Mean Platelet Volume 9.6 fL (9.1-12.4); NEUTROPHILS ABSOLUTE AUTO 15.39 K/mm3 (1.96-9.15); NEUTROPHILS PERCENT AUTO 95 % (41-73); Platelet Count 366 K/mm3 (150-400); RDW Coefficient Variation 12.8 % (11.7-14.2); Red Blood Cell Count 3.63 M/mm3 (3.80-5.20)
[2024-06-22 07:32] LABS: Bun/Creatinine Ratio 38.3 (12.0-20.0); Creatinine, Blood 0.47 mg/dL (0.40-1.00); Potassium, Blood 4.6 mmol/L (3.5-5.5)
[2024-06-22] MEDS ORDERED: TRELEGY ELLIPTA INH SCH (07:50)
[2024-06-22] MEDS ORDERED: LevoFLOXacin 750 MG Tab PO SCH (09:00)
[2024-06-22] MEDS ORDERED: MethylPREDNISolone Sod Succ 125 MG Vial IV SCH (09:00)
[2024-06-22] MEDS ORDERED: dilTIAZem HCL 60 MG TAB PO ONE ×2 (10:35→11:00)
[2024-06-22] MEDS ORDERED: Docusate Sodium/Senna 1 Tab PO ONE (11:00)
[2024-06-22] MEDS ORDERED: Polyethylene Glycol 3350 17 gm PO PRN (11:00)
[2024-06-22] MEDS ORDERED: Polyethylene Glycol 3350 17 gm PO ONE (11:00)
[2024-06-22] MEDS ORDERED: Docusate Sodium/Senna 1 Tab PO PRN (11:00)
[2024-06-22 11:44] LABS: Free Thyroxine 1.21 ng/dL (0.70-1.60); Magnesium, Blood 2.3 mg/dL (1.6-2.4); Thyroid Stimulating Hormone 0.649 uIU/mL (0.360-4.800); Triiodothyronine, Free 1.82 pg/mL (2.18-3.98)
[2024-06-22] MEDS ORDERED: Sodium Chloride 1 GM TAB PO SCH (12:30)
[2024-06-22] MEDS ORDERED: Furosemide 10 MG / ML 2ML Vial IV ONE (14:00)
--- NOTE | 2024-06-22 18:06 | NUR ---
SHIFT SUMMARY PT NOTED TO BE A&O X4. PT NOTED TO BE TACHACARDIC WITH TACHAPENIC AND NOTED TO SHOW SIGNS OF RESP DISTRESS EVEN AFTER PRN MEDICATION ADMINISTERED AT THE START OF THIS SHIFT. PHYSICIAN NOTIFIED AND NEW ORDERS PLACED. PT HEART RATE AND TACHAPENIC NOTED TO IMPROVE ABOUT AN 1HR AFTER MEDICATION WAS ADMINISTERED. PT HR NOTED TO TACH UP AGAIN AT ABOUT 1800 AND PT NOTED TO C/O SOB AND RESP NOTED TO BE ELVATED ALONG WITH BP. PHYSIICAN NOTIFED AND STATED THAT HE WOULD REVIEW CHART AND PLACE NEW ORDERS IF NEEDED.
--- NOTE | 2024-06-23 03:28 | NUR ---
SHIFT SUMMARY PATIENT IS VERY SOB WITH MINIMAL EXERTION. RT BROUGHT IN A C PAP TONIGHT AND PATIENT IS WEARING THE C PAP AND TOLERATING IT OK. PATIENT IS ORIENTED X4. SHE HAS HER CALL LIGHT WITHIN REACH. TELE IS ON AND SHE REMAINS TACHYCARDIC SAFETY PRECAUTIONS ARE BEING MAINTAINED.
[2024-06-23 04:26] VITALS: BP 174/155
[2024-06-23 04:27] VITALS: BP 143/101
[2024-06-23 05:58] LABS: BASOPHILS ABSOLUTE AUTO 0.01 K/mm3 (0.00-0.23); BASOPHILS PERCENT AUTO 0 % (0-2); EOSINOPHILS PERCENT AUTO 0 % (0-6); Hematocrit 31.9 % (33.0-51.0); IMMATURE GRAN PERCENT AUTO 1 % (0-1); LYMPHOCYTES ABSOLUTE AUTO 0.23 K/mm3 (0.84-5.20); LYMPHOCYTES PERCENT AUTO 1 % (21-46); MONOCYTES ABSOLUTE AUTO 0.53 K/mm3 (0.16-1.47); MONOCYTES PERCENT AUTO 3 % (4-13); Mean Corpuscular HGB 31.3 pg (26.0-34.0); Mean Corpuscular HGB Conc 34.5 g/dL (31.5-36.5); Mean Corpuscular Volume 91 fL (80-100); Mean Platelet Volume 9.6 fL (9.1-12.4); NEUTROPHILS ABSOLUTE AUTO 17.48 K/mm3 (1.96-9.15); NEUTROPHILS PERCENT AUTO 95 % (41-73); Platelet Count 324 K/mm3 (150-400); RDW Coefficient Variation 13.2 % (11.7-14.2); RDW Standard Deviation 43.4 fL (35.1-46.3); Red Blood Cell Count 3.52 M/mm3 (3.80-5.20); White Blood Cell Count 18.35 K/mm3 (4.00-11.30)
[2024-06-23 06:22] LABS: Bun/Creatinine Ratio 42.9 (12.0-20.0); Calcium, Blood 9.3 mg/dL (8.5-10.1); Creatinine, Blood 0.58 mg/dL (0.40-1.00)
[2024-06-23] MEDS ORDERED: Furosemide 10 MG / ML 2ML Vial IV ONE (10:05)
[2024-06-23] MEDS ORDERED: Budesonide 0.25 MG / 2 ML RESP INH SCH (11:00)
[2024-06-23] MEDS ORDERED: dilTIAZem HCL 60 MG TAB PO ONE (13:35)
[2024-06-23] MEDS ORDERED: Bisacodyl 10 MG Supp PR ONE (13:40)
[2024-06-23 14:53] VITALS: BP 167/101
[2024-06-23] MEDS ORDERED: Diltiazem HCl 5 MG / ML 5ML Vial IV ONE (16:20)
[2024-06-23 18:13] VITALS: BP 136/87
--- NOTE | 2024-06-23 19:05 | NUR ---
SHIFT SUMMARY PT CONT LEVEL OF CARE. PT NOTED TO CONT TO HAVE DIFFICULT TIME MAINTAING HR. PHYSICIAN WAS NOTIFED AND GAVE NEW ORDERS THIS SHIFT X2. PT ALSO NOTED TO CONT TO HAVE ABD DISTENTION AND WAS GIVEN PRN SENNA MIRLAX, ALONG WITH PRUNE JUICE,COFFEE, AND BUTTER, RECEIVED A 1 ORDER FOR SUPPOSITORY GIVEN WITH LITTLE OUTPUT NOTED. CALL PLACED TO PHYSICIAN REQUESTING AN ENEMA PER PT SHE HAS NOT HAD BM IN OVER A WEEK PHYSICAN HAS NOT RESPONDED. PASSED ON TO NEXT NURSE WHOM STATED SHE WOULD CALL THE PHYSICIAN AGAIN.
[2024-06-23] MEDS ORDERED: Sennosides 8.6 MG Tab PO ONE (19:15)
[2024-06-23] MEDS ORDERED: Polyethylene Glycol 3350 17 gm PO SCH (20:00)
[2024-06-23] MEDS ORDERED: Sod Phosphate/Sod Biphosphate 132 ML BTL PR ONE (20:40)
[2024-06-23 20:43] VITALS: BP 152/94
[2024-06-23] MEDS ORDERED: Docusate Sodium 100 MG Cap PO SCH (21:00)
[2024-06-23] MEDS ORDERED: Metoclopramide HCl 5MG / ML 2ML Vial IV ONE (23:10)
[2024-06-24 01:58] VITALS: BP 140/76
--- NOTE | 2024-06-24 03:35 | NUR ---
SHIFT SUMMARY PATIENT HAS HAD A RESTLESS NIGHT. SHE HAS NOT HAD A BM IN OVER A WEEK. AT THE BEGINING OF THE SHIFT, PATIENT WAS NAUSEATED AND REQUESTING AN ENEMA. BS WERE POSITIVE. MD WAS NOTIFIED AND ENEMA WAS ORDERED. NO RESULTS FROM THE ENEMA AND VOMITING CONTINUED IN SPITE OF ZOFRAN ADMINISTRATION. MD WAS NOTIFIED OF ABDOMINAL DISTENTION AND VOMITING. REGLAN WAS ORDERED AND ADMINSITERED. PATIENT WAS MADE NPO. PATIENT IS RESTING MORE COMFORTABLY AT THIS TIME.
[2024-06-24 05:58] LABS: PCO2 Arterial 60.8 mmHg (35-45); PO2 Arterial 76.6 mmHg (80-100); pH Blood Arterial 7.45 (7.35-7.45)
[2024-06-24 06:05] VITALS: BP 151/73
[2024-06-24 06:10] LABS: Hematocrit 33.2 % (33.0-51.0); Hemoglobin 11.5 g/dL (11.5-16.0); Mean Corpuscular HGB 31.6 pg (26.0-34.0); Mean Corpuscular HGB Conc 34.6 g/dL (31.5-36.5); Mean Corpuscular Volume 91 fL (80-100); Mean Platelet Volume 9.9 fL (9.1-12.4); Platelet Count 298 K/mm3 (150-400); RDW Coefficient Variation 13.2 % (11.7-14.2); RDW Standard Deviation 43.9 fL (35.1-46.3); Red Blood Cell Count 3.64 M/mm3 (3.80-5.20); White Blood Cell Count 18.21 K/mm3 (4.00-11.30)
[2024-06-24 07:00] LABS: Bun/Creatinine Ratio 47.8 (12.0-20.0); Calcium, Blood 9.8 mg/dL (8.5-10.1); Creatinine, Blood 0.71 mg/dL (0.40-1.00); Potassium, Blood 4.1 mmol/L (3.5-5.5)
[2024-06-24 08:03] VITALS: BP 144/85
[2024-06-24] MEDS ORDERED: dilTIAZem HCL 240 MG CAP.CD PO SCH (09:00)
[2024-06-24 11:44] VITALS: BP 137/75
[2024-06-24] MEDS ORDERED: Methylnaltrexone Bromide 12 MG/0.6 ML Injection SC STA (13:26)
[2024-06-24 16:12] VITALS: BP 147/88
--- NOTE | 2024-06-24 18:44 | NUR ---
PT PLEASANT TODAY. H/R STILL UP AND O2 SATS DROP WITH ANY EXERTION. FENTANYL PATCH REPLACED TODAY. PT STATES FELL OFF YESTERDAY AND WAS PUT IN TRASH. I SEARCHED PT. COULD NOT LOCATE. PLACED NEW PATCH ON RT FRONT SHOULDER. LUNGS DIM IN BASES TODAY. WHEEZY T/O. CONTINUES ON 3L O2. NO BM. DISCUSSED WITH DR CALLAHAN. SHE DID MAKE ORDERS TODAY. NO OTHER CONCERNS NOTED. BED LOW POSITIOIN, CALL LITE IN REACH, CALLS APPROP
[2024-06-24 20:05] VITALS: BP 126/75
[2024-06-25 00:04] VITALS: BP 123/84
[2024-06-25 04:36] VITALS: BP 117/83
--- NOTE | 2024-06-25 04:39 | NUR ---
SHIFT SUMMARY PATIENT HAS BEEN SLEEPING INTERMITTANTLY THROUGHOUT THE NIGHT. SHE HAS NOT HAD A BOWEL MOVEMENT TONIGHT BUT BOWEL SOUNDS ARE ACTIVE AND SHE HAS BEEN PASSING GAS. NO EPISODES OF VOMITING TONIGHT. PATIENT IS USING BETWEEN 3 AND 4 LITERS OF SUPPLEMENTAL 02 TO KEEP SATURATIONS ABOVE 90 PERCENT. SHE IS ORIENTED X4 AND HAS HER CALL LIGHT WITHIN REACH. SAFETY PRECAUTIONS ARE BEING MAINTAINED.
[2024-06-25 06:29] LABS: Hemoglobin 10.4 g/dL (11.5-16.0); Mean Corpuscular HGB 32.1 pg (26.0-34.0); Mean Corpuscular HGB Conc 34.7 g/dL (31.5-36.5); Mean Corpuscular Volume 93 fL (80-100); Mean Platelet Volume 9.8 fL (9.1-12.4); Platelet Count 237 K/mm3 (150-400); RDW Coefficient Variation 13.2 % (11.7-14.2); RDW Standard Deviation 45.1 fL (35.1-46.3); Red Blood Cell Count 3.24 M/mm3 (3.80-5.20); White Blood Cell Count 13.19 K/mm3 (4.00-11.30)
[2024-06-25 07:06] LABS: Calcium, Blood 8.6 mg/dL (8.5-10.1); Creatinine, Blood 0.69 mg/dL (0.40-1.00); Potassium, Blood 4.5 mmol/L (3.5-5.5)
[2024-06-25 07:16] VITALS: BP 130/78
[2024-06-25] MEDS ORDERED: Methylnaltrexone Bromide 12 MG/0.6 ML Injection SC ONE (09:25)
[2024-06-25] MEDS ORDERED: Sennosides 8.6 MG Tab PO SCH (10:00)
[2024-06-25] MEDS ORDERED: Naloxegol Oxalate 12.5 MG Tab PO ONE (11:05)
[2024-06-25 12:07] VITALS: BP 136/84
[2024-06-25 16:15] VITALS: BP 99/69
--- NOTE | 2024-06-25 17:58 | NUR ---
SHIFT NOTE: PT A/OX4 ABLE TO MAKE HER NEEDS KNOWN. SHE IS ON TELE IN WITH NO ACUTE EVENTS THIS SHIFT. SHE WAS ON 3L NC AND HAD TO BE INCREASED TO 4L TO MAINTAIN SPO2>90%. HER LUNG SOUNDS ARE WHEEZY AND COARSE. SHE IS IND TO THE BSC FOR VOIDS. NO BM THIS SHIFT, BOWEL CARE CONTINUES. SHE REPORTS PAIN T/O DAY, MEDICATED PER EMAR WITH TYLENOL AND DILAUDID. CARE CONTINUES
[2024-06-25] MEDS ORDERED: Bisacodyl 10 MG Supp PR ONE (19:40)
[2024-06-25] MEDS ORDERED: Sennosides 8.6 MG Tab PO ONE (19:40)
[2024-06-25 19:42] VITALS: BP 123/71
[2024-06-26 02:58] VITALS: BP 113/61
--- NOTE | 2024-06-26 05:05 | NUR ---
PT A&Ox4 AND PLEASANT. PT C/O ABD AND BACK PAIN AT START OF SHIFT. MEDICATED PER EMAR. DR CALLAHAN CALLED AT START OF SHIFT TO SEE IF PT HAS HAD BM. SINCE NO BM ORDERS GIVEN FOR ONE TIME DOSE OF SENOKOT AND DUCOLAX SUP. SCHEDULED BOWEL MEDS ALSO GIVEN. PT UP TO BC DRUING THE NIGHT BUT HAS NOT HAD A BM. PT IS PASSING GAS. NO EMISIS THIS SHIFT. NO EVENTS ON TELE. PT REMAINS ON 4L OF OXYGEN. RT AT BEDSIDE FOR BREATHING TX. NPO AT MIDNIGHT FOR PROCEDURE IN AM. PT CALLS APPROPRIATELY. BED IN LOWEST POSITION AND CALL LIGHT IN REACH.
[2024-06-26 07:28] VITALS: BP 152/68
--- NOTE | 2024-06-26 09:43 | NUR ---
NOTE: SPOKE WITH DR. PADILLA, HE DOES NOT WANT TO DO THE PROCEDURE TODAY DUE TO THE PT'S RESPIRATORY STATUS. ATTEMPTED TO CALL DR. CALLAHAN TO NOTIFY HER, WILL ATTEMPT AGAIN.
[2024-06-26] MEDS ORDERED: Magnesium Citrate 300 ML BTL PO ONE (11:45)
[2024-06-26] MEDS ORDERED: Naloxegol Oxalate 12.5 MG Tab PO ONE (11:50)
[2024-06-26 12:02] VITALS: BP 141/91
[2024-06-26 16:13] VITALS: BP 123/75
--- NOTE | 2024-06-26 17:33 | NUR ---
SHIFT SUMMARY PT AOX4, INDEPENDENT TO THE BSC. 1 ASSIST TO THE BR. SHE COMES VERY SOB WITH EXERCTION, SHE IS ON 4L NOW. MEDICATED FOR PAIN AND ANXIETY PER THE EMAR, ALSO GIVEN BOWEL CARE MEDICATIONS PER THE EMAR. SHE CALLS. REPOSITIONS SELF IN BED. NO BM THIS SHIFT, YET. NO EVENTS PER TELE. CALL LIGHT WITHIN REACH, BED LOCKED AND IN THE LOWEST POSITION. WILL REPORT TO ONCOMING NURSE.
[2024-06-26 20:28] VITALS: BP 135/69
[2024-06-27 00:31] VITALS: BP 122/71
[2024-06-27 05:10] VITALS: BP 120/60
--- NOTE | 2024-06-27 05:48 | NUR ---
SHIFT SUMMARY PT A&Ox4 AND PLEASANT. ON 4L OF OXYGEN. USES CPAP AT NIGHT. PT C/O BACK PAIN AND MEDICATED PER EMAR. BOWEL CARE GIVEN PER EMAR. PT ABLE TO HAVE VERY LARGE, SOFT/LOOSE STOOL AROUND 0500. PT VERY SOB WITH ACTIVITY AND HR INCREASES TO 110-130's. OTHERWISE, VSS. BED IN LOWEST POSITION AND CALL LIGHT IN REACH.
[2024-06-27 07:37] VITALS: BP 124/76
[2024-06-27 09:01] LABS: BASOPHILS ABSOLUTE AUTO 0.03 K/mm3 (0.00-0.23); BASOPHILS PERCENT AUTO 0 % (0-2); EOSINOPHILS ABSOLUTE AUTO 0.03 K/mm3 (0.00-0.68); EOSINOPHILS PERCENT AUTO 0 % (0-6); Hemoglobin 12.6 g/dL (11.5-16.0); IMMATURE GRAN ABSOLUTE AUTO 0.09 K/mm3 (0.00-0.10); IMMATURE GRAN PERCENT AUTO 0 % (0-1); LYMPHOCYTES ABSOLUTE AUTO 0.64 K/mm3 (0.84-5.20); LYMPHOCYTES PERCENT AUTO 2 % (21-46); MONOCYTES ABSOLUTE AUTO 1.69 K/mm3 (0.16-1.47); MONOCYTES PERCENT AUTO 7 % (4-13); Mean Corpuscular HGB 32.1 pg (26.0-34.0); Mean Corpuscular HGB Conc 34.1 g/dL (31.5-36.5); Mean Corpuscular Volume 94 fL (80-100); Mean Platelet Volume 10.2 fL (9.1-12.4); NEUTROPHILS PERCENT AUTO 91 % (41-73); Platelet Count 228 K/mm3 (150-400); RDW Coefficient Variation 13.2 % (11.7-14.2); RDW Standard Deviation 45.6 fL (35.1-46.3); Red Blood Cell Count 3.92 M/mm3 (3.80-5.20); White Blood Cell Count 26.18 K/mm3 (4.00-11.30)
[2024-06-27 09:22] LABS: Bun/Creatinine Ratio 64.6 (12.0-20.0); Calcium, Blood 8.5 mg/dL (8.5-10.1); Creatinine, Blood 0.79 mg/dL (0.40-1.00)
[2024-06-27] MEDS ORDERED: Budesonide 0.5 MG/2 ML RESP INH SCH (10:25)
[2024-06-27 16:09] VITALS: BP 108/67
[2024-06-27] MEDS ORDERED: Furosemide 10 MG/ML 4ML Vial IV ONE (17:00)
--- NOTE | 2024-06-27 18:03 | NUR ---
SHIFT SUMMARY PT AOX4, INDEPENDENT TO THE BSC. CALLS AND MAKES HER NEEDS KNOWN. MEDICATED FOR PAIN PER THE EMAR. MUCH IMPROVED THIS SHIFT, PAIN IS BETTER MANAGED. BM'S THIS SHIFT. PT IS A DNR. PLAN IS FOR PT TO DC TOMORROW. RESPOSITIONS SELF IN BED. PT IS CURRENTLY ON 4L NC. CALL LIGHT WITHIN REACH, BED LOCKED AND IN THE LOWEST POSITION. WILL REPORT TO ONCOMING NURSE.
[2024-06-27 20:06] VITALS: BP 107/63
[2024-06-28 00:16] VITALS: BP 97/60
[2024-06-28 04:10] VITALS: BP 104/93
--- NOTE | 2024-06-28 05:03 | NUR ---
SHIFT SUMMARY PT A&Ox4. PT CONTINUED TO HAVE SMALL LOOSE STOOL A FEW TIMES DURING THE NIGHT. MEDICATED PER EMAR FOR BACK PAIN WITH LITTLE EFFECT. PT REMAINS ON 4L OF OXYGEN. RT ENCOURAGED PT TO USE CPAP WHILE SLEEPING BUT PT ONLY WAS ABLE TO KEEP IT ON FOR ABOUT AN HOUR. PT SLEPT VERY LITTLE DURING THE NIGHT. HR REMAINS ST AND JUMPS UP TO THE 120's WITH ACTIVITY. VSS BUT BP SOFT. BED IN LOWEST POSITION AND CALL LIGHT IN REACH.
[2024-06-28 05:55] LABS: Hematocrit 32.6 % (33.0-51.0); Hemoglobin 11.4 g/dL (11.5-16.0); Mean Corpuscular HGB 31.7 pg (26.0-34.0); Mean Corpuscular Volume 91 fL (80-100); Mean Platelet Volume 10.4 fL (9.1-12.4); Platelet Count 201 K/mm3 (150-400); RDW Standard Deviation 43.4 fL (35.1-46.3); White Blood Cell Count 14.85 K/mm3 (4.00-11.30)
[2024-06-28 06:18] LABS: Albumin, Blood 3.5 g/dL (3.4-5.0); Anion Gap 7 mmol/L (3-11); Blood Urea Nitrogen 77 mg/dL (8-24); Bun/Creatinine Ratio 63.1 (12.0-20.0); CO2, Blood 33 mmol/L (21-32); Calcium, Blood 8.8 mg/dL (8.5-10.1); Chloride, Blood 88 mmol/L (98-108); Creatinine, Blood 1.22 mg/dL (0.40-1.00); Glomerular Filtration Rate 48 (60-); Glucose, Blood 118 mg/dL (70-99); Phosphorus, Blood 2.5 mg/dL (2.5-4.9); Potassium, Blood 5.6 mmol/L (3.5-5.5); Sodium, Blood 122 mmol/L (136-145)
[2024-06-28 06:59] VITALS: BP 109/69
[2024-06-28] MEDS ORDERED: HYDROmorphone HCl 2 MG Tab PO PRN (08:10)
[2024-06-28] MEDS ORDERED: OxyCODONE 10/Acetamin 325 TABLET PO PRN (08:10)
[2024-06-28] MEDS ORDERED: PredniSONE 20 MG Tab PO SCH (09:00)
[2024-06-28 11:36] VITALS: BP 95/65
[2024-06-28] MEDS ORDERED: VISBIOME 112.51 EACH PO (14:07)
[2024-06-28] MEDS ORDERED: DULO30 PO (14:08)
[2024-06-28] MEDS ORDERED: LIDO700A20 TOP (14:09)
[2024-06-28] MEDS ORDERED: Nicoderm Cq1 EACH TOP (14:10)
[2024-06-28] MEDS ORDERED: PRED20 PO (14:11)
[2024-06-28] MEDS ORDERED: MIRALAX1714 PO (14:12)
[2024-06-28] MEDS ORDERED: Insulin Regular 100 UNIT/ML 10ML Vial IV STA (14:44)
[2024-06-28] MEDS ORDERED: Dextrose 50% 50 ML Vial IV STA (14:44)
[2024-06-28 14:46] VITALS: BP 108/58
[2024-06-28] MEDS ORDERED: NS 1,000 ML IV SCH (14:50)
--- NOTE | 2024-06-28 18:43 | NUR ---
PT A&OX4, VSS WITH ST 100-120 ON TELE. C/O BACK PAIN, MEDICATED PER EMAR. PT WAS HOPING TO BE DISCHARGED TODAY, UNFORTUNATLY, POTASSIUM WAS ELEVATED WITH AM LABS TO 5.6, REDRAW PRIOR TO DISCHARGE WAS CRITICALLY HIGH OF 6.1, NOTIFIED ORDERS FOR 10 UNITS INSULIN 12.5 MG GLUCOSE, AND NS AT 100ML/HR STARTED AND PT STAYING AT LEAST ANOTHER NIGHT PENDING POTASSIUM. PT ON 2.5L O2 WHICH IS HER BASELINE. SBA TO BSC, SEVERAL SM FORMED BM THIS SHIFT. PT CALLS APPROPRIATLY, CALL LIGHT IN REACH, BED IN LOWEST POSITION.
[2024-06-28 19:12] VITALS: BP 98/53
--- NOTE | 2024-06-28 20:01 | NUR ---
NURSE NOTE ASSUMED CARE OF PT. ASSESSMENT COMPLETE. PT LUNG SOUNDS DIMINSHED T/O AND TIGHT. PT DENIES SOB. ON 2.5 LPM AND SATTING 94%. APPEARS TO BE WORKING AT BREATHING. CALL TO RT TO ADVISE. PT DENIES NEED AT THIS TIME FOR BREATHING TX. PT C/0 10/24 BACK PAIN. PT HAS LIDOCAINE PT IN PLACE ON MID LOW BACK. MAXWELL PATC ON LEFT SHOULDER. UNABLE TO LOCATE FENTANYL PATCH GIVEN ON 06/27 AT 1114. PT COULD NOT RECAL WHERE IT WAS PLACED (EMAR STATES BACK). PT UNAWARE PATCH IS OFF OR WHERE IT IS AT. PT BLOOD BRESSURE ON LOW SIDE AND MAP OF 66. FLUIDS RUNNING. PT A/OX4. WILL CONTINUE TO MONITOR.
--- NOTE | 2024-06-28 20:12 | NUR ---
RT AT BEDSIDE AT 2011 FOR BREATHING TREATMENT. PT BP IS 98/53. PT IS GETTING NS AT 100MLS AN HOUR. MAP IS 66. PT IS ASYMPTOMATIC--DENIES FATIUE, DIZZINESS, AND IS ALERT/ORIENTED. WILL CONT TO MONITOR.
[2024-06-28 20:45] LABS: Bun/Creatinine Ratio 66.4 (12.0-20.0); Calcium, Blood 8.3 mg/dL (8.5-10.1); Creatinine, Blood 1.07 mg/dL (0.40-1.00)
[2024-06-28] MEDS ORDERED: Insulin Regular 100 UNIT/ML 10ML Vial IV ONE (21:50)
[2024-06-28] MEDS ORDERED: Dextrose 50% 50 ML Syringe IV ONE (21:55)
[2024-06-29 00:28] VITALS: BP 118/67
[2024-06-29 04:13] VITALS: BP 105/96
--- NOTE | 2024-06-29 06:20 | NUR ---
SOFTWARE PROJECT ENGINEER WITH HOSPITALIST CONTACT. SEE PREVIOUS SHIFT NOTES. PT A/OX4. ABLE TO MAKE NEEDS KNOWN. PT ASSISTED TO BSC T/O THE NIGHT MANY TIMES. CALLS APPROPRIATELY. PT HAD ELEVATED POTASSIUM OF 6.0 TREND DOWN FROM 6.1. CRITICAL NOTIFICATION GIVEN TO CHARGE NURSE AT 2038 AND THEN TO ME AT 2044. PHONE CALL TO HOSPITALIST--HAD TO WAIT FOR RETURN CALL. NOTIFIED DR CRAIG AT 2139. NEW ORDER FOR 5 UNITS INSULIN IV AND 1 AMP OF D50. PT TOLERATED WELL. PT CALL LIGHT ACCESSIBLE. CARE WILL CONTINUE UNTIL REPORT GIVEN TO ONCOMING NURSE.
[2024-06-29 06:55] LABS: Bun/Creatinine Ratio 57.1 (12.0-20.0); Calcium, Blood 7.8 mg/dL (8.5-10.1); Creatinine, Blood 0.74 mg/dL (0.40-1.00); Potassium, Blood 4.7 mmol/L (3.5-5.5)
[2024-06-29 07:04] VITALS: BP 124/78
[2024-06-29] MEDS ORDERED: FENTANYL1 EA10 TOP (08:51)
[2024-06-29] MEDS ORDERED: IPRAT-ALBUT 0.5-3 ML INH (08:54)
[2024-06-29] MEDS ORDERED: Enoxaparin 30 MG/0.3 ML SYR SC SCH (09:00)
[2024-06-29] MEDS ORDERED: Ferrous Gluconate 325 MG Tablet PO SCH (09:00)
--- NOTE | 2024-06-29 12:34 | NUR ---
PATIENT TO BE TRANSPORTED [facility]IA [facility] WITH HOSPICE, PATIENT REQUESTED HOSPICE CARE, PATIENT HOME NARCOTICS LEFT IN LOCKED DRAWER FOR WHOLE ADMISSION, ALL HOME MEDICATIONS AND HOME NARCOTICS GIVEN BACK TO PATIENT, COUNTS AND AMOUNTS OF NARCOTIC VERIFIED WITH THIS RN AND RHONDA OBRIENEDUCATION FACULTY MEMBER, REPORTED TO CHARGE. PATIENT PLEASANT TO CARE
--- NOTE | 2024-06-29 12:59 | NUR ---
CLARIFIED WITH PT, SHE IS REQUESTING TO D/C WITH HOSPICE, NOT HOME HEALTH. [facility]IO REPORTS, "I'M TIRED. THERAPY ISN'T GOING TO CHANGE ANYTHING." SHE VERBALLY CONFIRMED UNDERSTANDING, HOSPICE IS NOT CURRATIVE CARE AND THE FOCUS WILL ONLY BE ON COMFORT AND QUALITY OF LIFE. THIS PC RN ASSISTED CC WITH D/C COORDINATION. CONFIRMATION WITH [facility], THEY ARE ABLE TO ADMIT [place] THIS AFTERNOON. PT USES OXYGEN AT BASELINE AND HAS A WORKING CONCENTRATOR AT HOME. EQUIPMENT NEEDED: SBC, BED, RUSTY, OVERBED TABLE. PT AND SON CONFIRM EQUIPMENT DELIVERY ON MONDAY IS ACCEPTABLE. NEW [facility] COMPLETED TO REFLECT DNR/DATA REPORTING ANALYST. FAXED TO [facility], [place] [facility]. COPY PLACED ON CHART, SENT TO MEDICAL RECORDS. ORIGINAL AND TWO COPIES TO CC FOR D/C COORDINATION. PRIMARY RN TO PREMEDICATE PT PRIOR TO GURNEY TRANSPORT HOME. PT'S SONSANDRA UPDATE VIA PHONE RE: D/C PLAN. HE AND HIS SPOUSE WILL BE HOME UPON PT'S ARRIVAL. PT'S HOME MEDICATIONS ARE IN HER MED DRAWER OUTSIDE HER ROOM. THIS PC RN AND BEDSIDE RN, PANCHO COUNTED PT'S SCHEDULE II MEDICATION TOGETHER. THEY ARE FOLLOWS. DILAUDID 2MG, #34 WHOLE TABS DILAUDID 2MG, #5 HALF TABS ROXANOL 20MG/1ML, #15ML LORAZEPAM 0.5MG, #18 TABS OTHER ROUTINE HOME MEDICATIONS WERE NOT COUNTED BY THIS RN. ALL MEDICATION TO BE SENT HOME WITH PT AT TIME OF TRANSPORT. SON NOTIFED RE: STATUS OF HOME MEDICATION AND TO CHECK FOR THEM UPON PT'S ARRIVAL HOME. SON VERBALIZED UNDERSTANDING THE NEED TO OBTAIN MEDICATIONS.
--- NOTE | 2024-06-29 14:07 | NUR ---
1330 TRANSPORTED HOME VIA [facility]CHER WITH HOSPICE, PATIENT CHANGES TO HOSPICE CARE TODAY, ALL HOME MEDICATIONS GIVEN BCK TO PATIENT
== END 2024-06-29 13:35 | disposition hospice, home (50) | DRG 542 ==
LOC: ER 02:09 → MEDS 02:10 → ERHOLD 02:10 → MEDS 06:22
PROVIDERS: Emergency Medicine; Family Medicine; Internal Medicine; ADMIT Internal Medicine
DX: M48.54XA Collapsed vertebra, not elsewhere classified, thoracic region, initial encounter for fracture (principal); I50.31 Acute diastolic (congestive) heart failure; E87.1 Hypo-osmolality and hyponatremia; J44.1 Chronic obstructive pulmonary disease with (acute) exacerbation; F11.20 Opioid dependence, uncomplicated; E87.5 Hyperkalemia; R19.7 Diarrhea, unspecified; D50.9 Iron deficiency anemia, unspecified; M48.04 Spinal stenosis, thoracic region; I11.0 Hypertensive heart disease with heart failure; J43.9 Emphysema, unspecified; M79.7 Fibromyalgia; F32.9 Major depressive disorder, single episode, unspecified; E78.5 Hyperlipidemia, unspecified; F43.10 Post-traumatic stress disorder, unspecified; Z51.5 Encounter for palliative care; Z99.81 Dependence on supplemental oxygen; Z88.8 Allergy status to other drugs, medicaments and biological substances; Z88.2 Allergy status to sulfonamides; Z79.82 Long term (current) use of aspirin; Z79.899 Other long term (current) drug therapy; K59.00 Constipation, unspecified
CPT/HCPCS: 0241U; 36415; 36600; 71045; 72128; 74018; 80048; 80053; 80069; 81003; 82803; 83605; 83735; 83880; 84100; 84132; 84145; 84439; 84443; 84481; 85025; 85027; 87070; 87077; 87186; 87205; 93005; 93010; 93306; 94640; 94660; 94664; 94760; 94762; 96372; 96374; 96375; 96376; 97161; 97530; 99284-25; A9270; G0378; J1171; J1650; J1815; J1885; J1940; J1956; J2212; J2405; J2765; J2919; J3010; J7030; J7512; J7799